=== PATIENT | male | born 1995 | race African-American/Black ===

== ENCOUNTER 2024-01-22 16:09 | Emergency (ER) | payer SELFPAY ==
[~2024-01-22] VITALS: Ht 182.9 cm; Wt 100.0 kg
[2024-01-22 16:16] VITALS: BP 132/82; PULSE 133; RESP 16; O2SAT 99
== END 2024-01-22 16:21 | disposition left against medical advice (07) ==
LOC: ER 16:09
DX: R55 Syncope and collapse (principal); Z53.21 Procedure and treatment not carried out due to patient leaving prior to being seen by health care provider